=== PATIENT | female | born 1960 | race African-American/Black ===

== ENCOUNTER 2020-12-06 14:43 | Inpatient (IN) ==
[2020-12-06] MEDS ORDERED: SODIUM CHLORIDE 0.9% 1,000 ML IV PRN ×2 (17:13→17:56)
[2020-12-06 17:18] LABS: Albumin 3.6 G/DL (3.4-5.0); Bilirubin,Total 1.7 MG/DL (0.2-1.0); Calcium 8.8 MG/DL (8.5-10.1); Osmolality,Calculated 271.8 MOS/KG (273-304); Potassium 4.2 MMOL/L (3.5-5.1); Total Protein 8.5 G/DL (5.0-7.5)
[2020-12-06 17:27] LABS: Red Blood Count 2.52 MC/CUMM (3.8-5.5); White Blood Count 5.5 T/CUMM (4-12)
[2020-12-06 17:28] LABS: Hematocrit 15.9 VOL% (35.7-47.0); Hemoglobin 4.1 GM/DL (12.0-16.0); Lymphocytes % 20.6 % (21.3-54.2); Mean Corpuscular HGB Conc 25.8 GM/DL (32-36); Mean Corpuscular Volume 63.1 FL (87-102); Mean Platelet Volume 9.5 FL (9.6-12.0); Neutrophils % 68.8 % (38.7-73.9); Platelet Count 408 T/CUMM (130-400); Red Cell Distribution Width 29.1 % (9.3-17.3)
[2020-12-06 17:29] LABS: Basophils % 0.4 % (0.0-0.8); Eosinophils % 0.2 % (0.00-10.9); Immature Granulocytes % 0.5 %; Immature Granulocytes Absolute 0.03 #; Lymphocytes # 1.1 10*3/uL (1.4-4.0); Monocytes % 9.5 % (1.7-12.7); NRBC # 0.21 10*3/uL
[2020-12-06 17:45] LABS: Anisocytosis 1+; Elliptocytes 1+; Hypochromasia 2+; Lymphocytes 18 % (20-55); Nucleated Red Blood Cells 4 (0-5); Poikilocytosis 1+; Segmented Neutrophils 73 % (50-85); Total Cells Counted 100
[2020-12-06 17:46] LABS: Folate > 24.0 NG/ML (5.38-24.0); Platelet Estimate Adequate; Polychromasia Few; Schistocytes 1+; Tear Drop Cells 1+; Vitamin B12 895 PG/ML (211-911)
[2020-12-06] MEDS ORDERED: DEXTROSE 50% 25 GM/50 ML VIAL IV PRN (17:47)
[2020-12-06] MEDS ORDERED: GLUCAGON 1 MG VIAL IM PRN (17:47)
[2020-12-06] MEDS ORDERED: ONDANSETRON 4 MG/2 ML VIAL IV PRN (17:47)
[2020-12-06 18:26] LABS: Sedimentation Rate-Westergren 38 MM/HR (0-30)
[2020-12-06] MEDS: ACETAMINOPHEN 325 MG TABLET PO PRN (20:47)
[2020-12-07] MEDS: SODIUM CHLORIDE 0.9% 1,000 ML IV SCH ×2 (06:24→15:38)
[2020-12-07 06:39] LABS: Basophils % 0.5 % (0.0-0.8); Eosinophils % 0.7 % (0.00-10.9); Hematocrit 22.7 VOL% (35.7-47.0); Immature Granulocytes % 0.5 %; Immature Granulocytes Absolute 0.02 #; Lymphocytes # 1.2 10*3/uL (1.4-4.0); Lymphocytes % 29.7 % (21.3-54.2); Mean Corpuscular HGB Conc 29.5 GM/DL (32-36); Mean Corpuscular Volume 71.8 FL (87-102); Mean Platelet Volume 8.9 FL (9.6-12.0); Monocytes % 16.2 % (1.7-12.7); NRBC # 0.11 10*3/uL; Neutrophils % 52.4 % (38.7-73.9)
[2020-12-07 06:49] LABS: Hemoglobin 6.7 GM/DL (12.0-16.0); Platelet Count 288 T/CUMM (130-400); Red Blood Count 3.16 MC/CUMM (3.8-5.5)
[2020-12-07 07:01] LABS: Albumin 3.3 G/DL (3.4-5.0); Bilirubin,Total 1.9 MG/DL (0.2-1.0); Calcium 8.6 MG/DL (8.5-10.1); Osmolality,Calculated 271.7 MOS/KG (273-304); Potassium 3.6 MMOL/L (3.5-5.1); Total Protein 7.7 G/DL (5.0-7.5)
[2020-12-07 07:05] LABS: % Iron Saturation 87.9 % (18-50); Ferritin 283.4 ng/ml (8-252); Thyroid Stimulating Hormone 2.55 uIU/ml (0.358-3.74)
[2020-12-07 07:21] LABS: Lymphocytes 22 % (20-55); Segmented Neutrophils 63 % (50-85); Total Cells Counted 100
[2020-12-07 07:22] LABS: Elliptocytes 1+; Hypochromasia 3+; Microcytosis 3+; Ovalocytes Few; Poikilocytosis 3+
[2020-12-07 07:23] LABS: Platelet Estimate Normal; Schistocytes Few; Target Cells Slight
[2020-12-07 07:24] LABS: Tear Drop Cells Slight
[2020-12-07 07:56] LABS: Total Protein 7.7 G/DL (5.0-7.5)
[2020-12-07 08:07] LABS: Immunoglobulin A (Chem) 76 MG/DL (70-400); Immunoglobulin G (Chem) 2280 MG/DL (700-1600); Total Protein (Chem) 7.7 G/DL (6.4-8.3)
[2020-12-07 08:08] LABS: Immunoglobulin M (Chem) 23 MG/DL (40-230)
[2020-12-07] MEDS: PANTOPRAZOLE 40 MG TABLET PO SCH (08:23)
[2020-12-07] MEDS: ACETAMINOPHEN 325 MG TABLET PO PRN (08:25)
[2020-12-07 08:53] LABS: Albumin (SPE) 4.5 G/DL (3.2-5.3); Albumin (SPE) Rel % 58.6 %; Alpha 1 (SPE) 0.2 G/DL (0.1-0.4); Alpha 1 (SPE) Rel % 2.5 %; Alpha 2 (SPE) 0.5 G/DL (0.4-1.0); Beta (SPE) 0.5 G/DL (0.5-1.1); Beta (SPE) Rel % 6.5 %
[2020-12-07 09:09] LABS: Gamma (SPE) Rel % 25.4 %
[2020-12-07 10:09] LABS: Hemoglobin A1 (Alkaline) 97.1 % (96.5-98.5); Hemoglobin A2 (Alkaline) 2.9 % (1.5-3.5)
[2020-12-07 11:16] LABS: Cancer Antigen 19-9 < 1.20 U/ML (0-35); Carcinoembryonic Antigen < 0.50 NG/ML (0.0-5.0)
[2020-12-07 12:28] LABS: Immuno Free Light Chain Kappa 42.93 MG/DL (0.33-1.94); Immuno Free Light Chain Lambda 2.33 MG/DL (0.57-2.63); Immuno Free Light Chain Ratio 18.42 MG/DL (0.26-1.65)
[2020-12-07 13:25] LABS: Hematocrit 25.2 VOL% (35.7-47.0); Hemoglobin 7.7 GM/DL (12.0-16.0)
[2020-12-07 13:30] LABS: HIV Antigen/Antibody Result Nonreactive (Nonreactive)
[2020-12-07 20:07] LABS: Hematocrit 29.2 VOL% (35.7-47.0); Hemoglobin 8.9 GM/DL (12.0-16.0)
[2020-12-08 03:28] LABS: Basophils % 0.6 % (0.0-0.8); Hematocrit 28.6 VOL% (35.7-47.0); Hemoglobin 8.6 GM/DL (12.0-16.0); Immature Granulocytes % 0.3 %; Immature Granulocytes Absolute 0.01 #; Lymphocytes % 33.2 % (21.3-54.2); Mean Corpuscular HGB Conc 30.1 GM/DL (32-36); Mean Corpuscular Volume 76.7 FL (87-102); Mean Platelet Volume 8.4 FL (9.6-12.0); Monocytes % 15.8 % (1.7-12.7); NRBC # 0.06 10*3/uL; Neutrophils % 49.1 % (38.7-73.9); Platelet Count 286 T/CUMM (130-400); Red Blood Count 3.73 MC/CUMM (3.8-5.5); Red Cell Distribution Width 27.7 % (9.3-17.3); White Blood Count 3.1 T/CUMM (4-12)
[2020-12-08 03:51] LABS: Calcium 8.5 MG/DL (8.5-10.1); Osmolality,Calculated 280.1 MOS/KG (273-304)
[2020-12-08 04:16] LABS: Eosinophils 2 % (0-10); Hypochromasia Slight; Lymphocytes 30 % (20-55); Nucleated Red Blood Cells 1 (0-5); Ovalocytes Few; Platelet Estimate Normal; Segmented Neutrophils 48 % (50-85); Total Cells Counted 100
[2020-12-08 04:17] LABS: Acanthocytes Few
[2020-12-08] MEDS: PANTOPRAZOLE 40 MG TABLET PO SCH (08:14)
[2020-12-08] MEDS: ACETAMINOPHEN 325 MG TABLET PO PRN (08:14)
[2020-12-08 13:11] LABS: Soluble Transf Receptor (sTfR) 59.8 mg/L (1.8 - 4.6)
[2020-12-08] MEDS: SODIUM CHLORIDE 0.9% 1,000 ML IV SCH (19:03)
[2020-12-09] MEDS: SODIUM CHLORIDE 0.9% 1,000 ML IV SCH ×2 (04:56→14:33)
[2020-12-09 05:56] LABS: PT Patient Result 10.9 SECS (9.8-11.9); Partial Thromboplastin Time 28.2 SECS (23.9-33.8)
[2020-12-09 08:13] LABS: Basophils % 0.4 % (0.0-0.8); Eosinophils % 1.5 % (0.00-10.9); Hemoglobin 8.3 GM/DL (12.0-16.0); Lymphocytes % 36.3 % (21.3-54.2); Mean Corpuscular HGB Conc 29.6 GM/DL (32-36); Mean Corpuscular Volume 78.2 FL (87-102); Mean Platelet Volume 9.6 FL (9.6-12.0); Monocytes % 13.3 % (1.7-12.7); Neutrophils % 48.5 % (38.7-73.9); Platelet Count 263 T/CUMM (130-400); Red Blood Count 3.58 MC/CUMM (3.8-5.5); Red Cell Distribution Width 28.6 % (9.3-17.3); White Blood Count 2.7 T/CUMM (4-12)
[2020-12-09 08:27] LABS: Calcium 8.3 MG/DL (8.5-10.1); Osmolality,Calculated 276.4 MOS/KG (273-304)
[2020-12-09 08:55] LABS: Eosinophils 2 % (0-10); Hypochromasia 1+; Lymphocytes 31 % (20-55); Microcytosis 1+; Nucleated Red Blood Cells 1 (0-5); Ovalocytes Slight; Platelet Estimate Adequate; Segmented Neutrophils 56 % (50-85); Total Cells Counted 100
[2020-12-09] MEDS: PANTOPRAZOLE 40 MG TABLET PO SCH (09:30)
[2020-12-09] MEDS ORDERED: ceFAZolin 1,000 MG in SYRINGE 1 EACH IV ONE (12:46)
[2020-12-10 03:50] LABS: Basophils % 0.8 % (0.0-0.8); Eosinophils # 0.1 10*3/uL (0.0-0.87); Eosinophils % 1.9 % (0.00-10.9); Hematocrit 27.1 VOL% (35.7-47.0); Hemoglobin 8.3 GM/DL (12.0-16.0); Lymphocytes # 1.1 10*3/uL (1.4-4.0); Lymphocytes % 41.8 % (21.3-54.2); Mean Corpuscular HGB Conc 30.6 GM/DL (32-36); Mean Platelet Volume 9.5 FL (9.6-12.0); Neutrophils % 42.5 % (38.7-73.9); Platelet Count 216 T/CUMM (130-400); Red Blood Count 3.52 MC/CUMM (3.8-5.5); Red Cell Distribution Width 28.4 % (9.3-17.3); White Blood Count 2.6 T/CUMM (4-12)
[2020-12-10 04:08] LABS: Calcium 8.5 MG/DL (8.5-10.1); Osmolality,Calculated 280.1 MOS/KG (273-304); Potassium 3.8 MMOL/L (3.5-5.1)
[2020-12-10 04:09] LABS: Hypochromasia 1+; Microcytosis 1+; Ovalocytes Slight; Platelet Estimate Adequate
[2020-12-10] MEDS ORDERED: LIDOCAINE 2% 5 ML VIAL ONE (08:46)
[2020-12-10] MEDS ORDERED: propofoL 200 MG/20 ML VIAL IV ONE (08:46)
[2020-12-10] MEDS ORDERED: DEXAMETHASONE 4 MG/1 ML VIAL ONE ×2 (08:46→09:53)
[2020-12-10] MEDS ORDERED: ONDANSETRON 4 MG/2 ML VIAL ONE (08:46)
[2020-12-10] MEDS ORDERED: fentaNYL 100 MCG/2 ML VIAL ONE (08:47)
[2020-12-10] MEDS ORDERED: SEVOFLURANE 1 UNIT/15 MINUTE INH ONE ×2 (08:47→10:18)
[2020-12-10] MEDS ORDERED: MIDAZOLAM 2 MG/2 ML VIAL ONE (08:47)
[2020-12-10] MEDS ORDERED: HYDROCORTISONE 100 MG VIAL ONE (09:26)
[2020-12-10] MEDS ORDERED: ceFAZolin 1,000 MG VIAL ONE ×2 (09:39→09:40)
[2020-12-10] MEDS ORDERED: KETOROLAC 30 MG/1 ML VIAL ONE (09:44)
[2020-12-10] MEDS ORDERED: PHENYLEPHRINE 1 MG/10 ML SYRINGE IV ONE (09:53)
[2020-12-10] MEDS ORDERED: TISSUE ADHESIVE 1 EACH APPLICATOR TOP ONE (09:58)
[2020-12-10] MEDS: PANTOPRAZOLE 40 MG TABLET PO SCH (10:50)
[2020-12-10] MEDS ORDERED: BISACODYL 5 MG TABLET PO ONE (13:00)
[2020-12-10] MEDS ORDERED: POLYETHYLENE GLYCOL POWDER 255 GM BOTTLE PO ONE (18:00)
[2020-12-10] MEDS: ACETAMINOPHEN 325 MG TABLET PO PRN (22:45)
[2020-12-11 05:50] LABS: Basophils % 0.6 % (0.0-0.8); Eosinophils % 0.6 % (0.00-10.9); Hematocrit 26.3 VOL% (35.7-47.0); Hemoglobin 7.8 GM/DL (12.0-16.0); Immature Granulocytes % 0.3 %; Immature Granulocytes Absolute 0.01 #; Lymphocytes % 32.3 % (21.3-54.2); Mean Corpuscular HGB Conc 29.7 GM/DL (32-36); Mean Corpuscular Volume 79.7 FL (87-102); Mean Platelet Volume 9.4 FL (9.6-12.0); Monocytes % 13.7 % (1.7-12.7); Neutrophils % 52.5 % (38.7-73.9); Platelet Count 227 T/CUMM (130-400); Red Cell Distribution Width 28.1 % (9.3-17.3); White Blood Count 3.2 T/CUMM (4-12)
[2020-12-11 06:03] LABS: INR 1.1; PT Patient Result 11.5 SECS (9.8-11.9)
[2020-12-11 06:05] LABS: Calcium 8.4 MG/DL (8.5-10.1); Osmolality,Calculated 286.6 MOS/KG (273-304); Potassium 3.4 MMOL/L (3.5-5.1)
[2020-12-11 06:12] LABS: Hypochromasia 2+; Microcytosis 1+; Ovalocytes Few
[2020-12-11 06:13] LABS: Platelet Estimate Normal; Tear Drop Cells Slight
[2020-12-11] MEDS ORDERED: LACTATED RINGERS 1,000 ML IV SCH (08:00)
[2020-12-11] MEDS: PANTOPRAZOLE 40 MG TABLET PO SCH (09:00)
[2020-12-11] MEDS ORDERED: LIDOCAINE 2% 5 ML VIAL ONE (09:22)
[2020-12-11] MEDS ORDERED: propofoL 200 MG/20 ML VIAL IV ONE ×2 (09:22→09:52)
[2020-12-11] MEDS ORDERED: PHENYLEPHRINE 1 MG/10 ML SYRINGE IV ONE (09:52)
[2020-12-11] MEDS ORDERED: POTASSIUM CHLORIDE 20 MEQ TABLET PO ONE (10:15)
[2020-12-12 05:38] LABS: Basophils % 0.8 % (0.0-0.8); Eosinophils # 0.1 10*3/uL (0.0-0.87); Hematocrit 24.1 VOL% (35.7-47.0); Hemoglobin 7.2 GM/DL (12.0-16.0); Immature Granulocytes % 0.4 %; Immature Granulocytes Absolute 0.01 #; Lymphocytes % 37.5 % (21.3-54.2); Mean Corpuscular HGB Conc 29.9 GM/DL (32-36); Mean Corpuscular Volume 78.8 FL (87-102); Mean Platelet Volume 9.6 FL (9.6-12.0); Monocytes % 12.5 % (1.7-12.7); Neutrophils % 46.8 % (38.7-73.9); Platelet Count 202 T/CUMM (130-400); Red Blood Count 3.06 MC/CUMM (3.8-5.5); Red Cell Distribution Width 28.6 % (9.3-17.3); White Blood Count 2.6 T/CUMM (4-12)
[2020-12-12 05:53] LABS: Calcium 8.3 MG/DL (8.5-10.1); Osmolality,Calculated 283.8 MOS/KG (273-304); Potassium 3.5 MMOL/L (3.5-5.1)
[2020-12-12 05:58] LABS: Hypochromasia 1+; Microcytosis 1+; Ovalocytes Slight; Platelet Estimate Adequate
[2020-12-12] MEDS ORDERED: SODIUM CHLORIDE 0.9% 1,000 ML IV PRN (07:59)
[2020-12-12] MEDS: PANTOPRAZOLE 40 MG TABLET PO SCH (08:53)
[2020-12-12] MEDS ORDERED: FOLIC ACID 1 MG TABLET PO SCH (09:00)
[2020-12-12 14:49] LABS: Hematocrit 29.9 VOL% (35.7-47.0); Hemoglobin 8.8 GM/DL (12.0-16.0)
[2020-12-12 16:11] VITALS: BP 105/53
== END 2020-12-12 16:52 | disposition home or self-care (01) | DRG 824 ==
LOC: N.ED 14:43 → N.EDINP 14:43 → N.5E 19:48 → SUATTDRO 12-08 17:04
PROVIDERS: ADMIT Hospitalist; ATTEND Family Medicine